=== PATIENT | male | born 1970 ===

== ENCOUNTER 2017-09-25 08:10 | Day surgery (SDC) | payer MEDICARE, OTHER ==
[~2017-09-25] VITALS: Ht 190.5 cm; Wt 132.4 kg
[~2017-09-25 08:10] MED LIST: ACYC400 PO; ALBU90OI; ALBU90OI6 INH; ALBU90OI61 INH; ALLO300; ARIP15 PO; ASPI325; ASPI325 PO; AZIT250 PO; CARI350 PO; COMBIVENT RESPIM4 GM; COMBIVENT RESPIM4 GM INH; CRUTCH3 XX; Carisoprodol350 MG PO; DICL25ER PO; ETOD200 PO; Emla Cream30 GM; FLONASE ALLERG9.9 ML; GUAI600T33 PO; HYDACE5 PO; HYDCHL25 PO; IBUP600 PO; INSLI100I SC; INSR10I SC; INSULANI; INSULANPEN; INSULANPEN SC; LAMO50 PO; LISI5 PO; LITH300C PO; LOSARTAN 100MG PO; LOVAZA; METF500; METF500 PO; METF500C PO; METO50ER PO; MORP60ER; NAPR500; NAPR500 PO; NIAC500ER; Novolog100 UNIT/2 SS; OLME20; OLME20 PO; OXYACE5T PO; OXYACE7.5T PO; Omeprazole20 M1 PO; PENVK500 PO; PRED20 PO; Percocet 5-3251 EACH PO; Prednisone20 MG PO; RANI150 PO; SILD50TA PO; SOMA; SOMA350 MG; SOMA350 MG PO; TAMS.4ER PO; TOPI50 PO; TRAM50 PO; VARE1 PO; Valium5 MG PO; Viagra100 MG PO; ZOSTAVAX V19400 UNIT; [UNRECOGNIZED DRUG - OTHER]; [UNRECOGNIZED DRUG - OTHER]; [UNRECOGNIZED DRUG - REMARK]; [UNRECOGNIZED DRUG - REMARK]
[2018-08-05] MEDS ORDERED: Humalog100 UNIT/1 (15:19)
[2018-08-05] MEDS ORDERED: ALBU3IS INH (15:23)
[2018-08-05] MEDS ORDERED: CARV6.25 PO (15:23)
[2018-08-05] MEDS ORDERED: Mobic15 MG PO (15:24)
[2018-08-05] MEDS ORDERED: BUDE6HFA INH (15:24)
[2018-08-05] MEDS ORDERED: ATOR80 PO (15:24)
[2018-08-05] MEDS ORDERED: LIRA0.6P SC (15:25)
[2018-08-05] MEDS ORDERED: OMEPRAZOLE20 MG PO (15:26)
[2018-08-05] MEDS ORDERED: SITA100T2 PO (15:26)
[2018-08-07] MEDS ORDERED: Aspir 8181 MG PO (12:16)
[2018-08-07] MEDS ORDERED: CLOP75 PO (12:17)
[2018-08-07] MEDS ORDERED: Nitroglycerin0.4 MG SL (12:18)
== END 2017-09-25 14:58 | disposition home or self-care (01) ==
LOC: ORSCSDS 08:10
PROVIDERS: Orthopaedic Surgery
PROC: 0RNJ4ZZ Release Right Shoulder Joint, Percutaneous Endoscopic Approach (ICD-10-PCS; principal; 2017-09-25 08:45)
PROC: 0PB94ZZ Excision of Right Clavicle, Percutaneous Endoscopic Approach (ICD-10-PCS; principal; 2017-09-25 08:45)
PROC: 0LQ14ZZ Repair Right Shoulder Tendon, Percutaneous Endoscopic Approach (ICD-10-PCS; principal; 2017-09-25 08:45)
DX: M75.111 Incomplete rotator cuff tear or rupture of right shoulder, not specified as traumatic (principal); M75.41 Impingement syndrome of right shoulder; M75.51 Bursitis of right shoulder; M19.011 Primary osteoarthritis, right shoulder; I10 Essential (primary) hypertension; I25.10 Atherosclerotic heart disease of native coronary artery without angina pectoris; G47.33 Obstructive sleep apnea (adult) (pediatric); F17.210 Nicotine dependence, cigarettes, uncomplicated; E11.9 Type 2 diabetes mellitus without complications; E66.01 Morbid (severe) obesity due to excess calories; Z68.36 Body mass index [BMI] 36.0-36.9, adult; Z79.82 Long term (current) use of aspirin; Z79.4 Long term (current) use of insulin; Z79.899 Other long term (current) drug therapy
CPT/HCPCS: 82947; C1713; J0171; J0690; J1100; J1885; J2250; J2405; J2710; J3010; J7120

== ENCOUNTER 2017-09-25 17:53 | Emergency (ER) | payer MEDICARE, OTHER ==
[~2017-09-25] VITALS: Ht 188 cm; Wt 113.4 kg
[2018-08-05] MEDS ORDERED: Humalog100 UNIT/1 (15:19)
[2018-08-05] MEDS ORDERED: CARV6.25 PO (15:23)
[2018-08-05] MEDS ORDERED: ALBU3IS INH (15:23)
[2018-08-05] MEDS ORDERED: Mobic15 MG PO (15:24)
[2018-08-05] MEDS ORDERED: BUDE6HFA INH (15:24)
[2018-08-05] MEDS ORDERED: ATOR80 PO (15:24)
[2018-08-05] MEDS ORDERED: LIRA0.6P SC (15:25)
[2018-08-05] MEDS ORDERED: SITA100T2 PO (15:26)
[2018-08-05] MEDS ORDERED: OMEPRAZOLE20 MG PO (15:26)
[2018-08-07] MEDS ORDERED: Aspir 8181 MG PO (12:16)
[2018-08-07] MEDS ORDERED: CLOP75 PO (12:17)
[2018-08-07] MEDS ORDERED: Nitroglycerin0.4 MG SL (12:18)
== END 2017-09-25 19:51 | disposition home or self-care (01) ==
LOC: ER 17:53
DX: H57.12 Ocular pain, left eye (principal); E11.9 Type 2 diabetes mellitus without complications; I10 Essential (primary) hypertension; F31.9 Bipolar disorder, unspecified; F17.200 Nicotine dependence, unspecified, uncomplicated; Z88.8 Allergy status to other drugs, medicaments and biological substances; Z79.899 Other long term (current) drug therapy; Z79.4 Long term (current) use of insulin; Z90.49 Acquired absence of other specified parts of digestive tract
CPT/HCPCS: 99284; J7030

== ENCOUNTER → 2018-12-24 | Outpatient (CLI) | payer MEDICARE, OTHER ==
[~2018-12-24] MED LIST changes: +ALBU3IS INH; +ATOR80 PO; +Aspir 8181 MG PO; +BUDE6HFA INH; +CARV6.25 PO; +CLOP75 PO; +Humalog100 UNIT/1; +LIRA0.6P SC; +Mobic15 MG PO; +Nitroglycerin0.4 MG SL; +OMEPRAZOLE20 MG PO; +SITA100T2 PO
[2018-12-24 13:10] LABS: BASOPHILS ABSOLUTE AUTO 0.03 K/mm3 (0.00-0.23); BASOPHILS PERCENT AUTO 1 % (0-2); EOSINOPHILS ABSOLUTE AUTO 0.14 K/mm3 (0.00-0.68); EOSINOPHILS PERCENT AUTO 3 % (0-6); Hematocrit 38.1 % (37.0-53.0); Hemoglobin 12.6 g/dL (13.5-17.5); IMMATURE GRAN ABSOLUTE AUTO 0.02 K/mm3 (0.00-0.10); IMMATURE GRAN PERCENT AUTO 1 % (0-1); LYMPHOCYTES ABSOLUTE AUTO 0.38 K/mm3 (0.84-5.20); LYMPHOCYTES PERCENT AUTO 9 % (21-46); MONOCYTES ABSOLUTE AUTO 0.29 K/mm3 (0.16-1.47); MONOCYTES PERCENT AUTO 7 % (4-13); Mean Corpuscular HGB 29.6 pg (26.0-34.0); Mean Corpuscular HGB Conc 33.1 g/dL (31.5-36.5); Mean Corpuscular Volume 90 fL (80-100); Mean Platelet Volume 10.7 fL (9.1-12.4); NEUTROPHILS ABSOLUTE AUTO 3.51 K/mm3 (1.96-9.15); NEUTROPHILS PERCENT AUTO 80 % (41-73); Platelet Count 109 K/mm3 (150-400); RDW Coefficient Variation 13.9 % (11.7-14.2); RDW Standard Deviation 45.1 fL (35.1-46.3); Red Blood Cell Count 4.25 M/mm3 (4.30-5.90); White Blood Cell Count 4.37 K/mm3 (4.00-11.30)
[2018-12-24 13:30] LABS: Alanine Aminotransfer (ALT/SGP 56 U/L (12-78); Albumin, Blood 3.2 g/dL (3.4-5.0); Albumin/Globulin Ratio 1.2 (0.8-1.8); Alk Phos 75 U/L (50-136); Amylase, Blood 31 U/L (25-115); Anion Gap 5 mmol/L (6-16); Aspartate Aminotrans (AST/SGOT 57 U/L (12-37); Bilirubin, Direct 0.2 mg/dL (0.0-0.3); Bilirubin, Indirect 0.5 mg/dL (0.1-0.7); Bilirubin, Total 0.7 mg/dL (0.1-1.0); Blood Urea Nitrogen 15 mg/dL (8-24); CO2, Blood 27 mmol/L (21-32); Calcium, Blood 8.4 mg/dL (8.5-10.1); Chloride, Blood 102 mmol/L (98-108); Globulin, Blood 2.6 g/dL (2.2-4.0); Glucose, Blood 175 mg/dL (70-99); Potassium, Blood 4.3 mmol/L (3.5-5.5); Sodium, Blood 134 mmol/L (136-145); Total Protein, Blood 5.8 g/dL (6.4-8.2); Uric Acid, Blood 5.2 mg/dL (3.5-7.2)
[2018-12-24 13:37] LABS: Bun/Creatinine Ratio 20.6 (12.0-20.0); Creatinine, Blood 0.73 mg/dL (0.60-1.20); Glomerular Filtration Rate >60 (60-)
== END | disposition home or self-care (01) ==
LOC: LAB SHORT 12:52 → LAB 12:52
PROVIDERS: Internal Medicine Nephrology
DX: N18.2 Chronic kidney disease, stage 2 (mild) (principal); D63.1 Anemia in chronic kidney disease; N25.81 Secondary hyperparathyroidism of renal origin; E55.9 Vitamin D deficiency, unspecified; E78.00 Pure hypercholesterolemia, unspecified; N20.0 Calculus of kidney; R10.9 Unspecified abdominal pain; R76.9 Abnormal immunological finding in serum, unspecified; R94.5 Abnormal results of liver function studies; R94.6 Abnormal results of thyroid function studies
CPT/HCPCS: 80053; 82150; 82248; 82306; 83690; 83970; 84100; 84550; 85025; 87086

== ENCOUNTER → 2019-02-05 | Outpatient (CLI) | payer MEDICARE, OTHER | END | disposition home or self-care (01) | LOC: LAB 16:48 → LAB SHORT 16:48 → LAB FUT 07-02 10:05 → EDSTATUS 02-04 10:05 | DX: H20.9 Unspecified iridocyclitis (principal) | CPT/HCPCS: 85651; 86140 ==

== ENCOUNTER 2019-02-23 09:42 | Day surgery (SDC) | payer MEDICARE, OTHER ==
[~2019-02-23] VITALS: Ht 190.5 cm; Wt 138.5 kg
[2019-02-23] MEDS ORDERED: ASPI325 (10:12)
== END 2019-02-23 12:30 | disposition home or self-care (01) ==
LOC: ORSCSDS 09:42
PROVIDERS: Otolaryngology
PROC: 03BS0ZX Excision of Right Temporal Artery, Open Approach, Diagnostic (ICD-10-PCS; principal; 2019-02-23 11:15)
DX: M31.6 Other giant cell arteritis (principal); Z87.891 Personal history of nicotine dependence; E11.9 Type 2 diabetes mellitus without complications; I10 Essential (primary) hypertension; J43.9 Emphysema, unspecified; I25.2 Old myocardial infarction; G47.33 Obstructive sleep apnea (adult) (pediatric); E78.5 Hyperlipidemia, unspecified; F31.9 Bipolar disorder, unspecified; Z79.4 Long term (current) use of insulin; Z79.899 Other long term (current) drug therapy
CPT/HCPCS: 82947; 88305; 88313; J2250; J3010; J7120

== ENCOUNTER → 2019-05-11 | Outpatient (CLI) | payer MEDICARE, OTHER ==
[2019-05-11 19:11] LABS: Bilirubin, Urine Neg (Neg); Blood, Urine 1+ (Neg); Glucose Qualitative, Urine Neg (Neg); Ketones, Urine Neg (Neg); Leukocyte Esterase, Urine Neg (Neg); Nitrite, Urine Neg (Neg); Protein, Urine 2+ (Neg); Specific Gravity, Urine 1.015 (1.003-1.022); Urobilinogen, Urine NORM (Normal)
[2019-05-11 19:13] LABS: BASOPHILS ABSOLUTE AUTO 0.04 K/mm3 (0.00-0.23); BASOPHILS PERCENT AUTO 1 % (0-2); EOSINOPHILS ABSOLUTE AUTO 0.28 K/mm3 (0.00-0.68); EOSINOPHILS PERCENT AUTO 4 % (0-6); Hematocrit 44.9 % (37.0-53.0); Hemoglobin 14.7 g/dL (13.5-17.5); IMMATURE GRAN ABSOLUTE AUTO 0.02 K/mm3 (0.00-0.10); IMMATURE GRAN PERCENT AUTO 0 % (0-1); LYMPHOCYTES ABSOLUTE AUTO 1.82 K/mm3 (0.84-5.20); LYMPHOCYTES PERCENT AUTO 26 % (21-46); MONOCYTES ABSOLUTE AUTO 0.44 K/mm3 (0.16-1.47); MONOCYTES PERCENT AUTO 6 % (4-13); Mean Corpuscular HGB 29.8 pg (26.0-34.0); Mean Corpuscular HGB Conc 32.7 g/dL (31.5-36.5); Mean Corpuscular Volume 91 fL (80-100); NEUTROPHILS ABSOLUTE AUTO 4.51 K/mm3 (1.96-9.15); NEUTROPHILS PERCENT AUTO 63 % (41-73); Platelet Count 146 K/mm3 (150-400); RDW Coefficient Variation 13.2 % (11.7-14.2); RDW Standard Deviation 44.1 fL (35.1-46.3); Red Blood Cell Count 4.94 M/mm3 (4.30-5.90); White Blood Cell Count 7.11 K/mm3 (4.00-11.30)
[2019-05-11 19:20] LABS: Appearance, Urine Clear (Clear); Color, Urine Yellow (P-Yellow)
[2019-05-11 19:21] LABS: Bacteria Rare /hpf; Red Blood Cells, Urine 0-2 /hpf (0-2); Squamous Epithelial Cells Not Seen /hpf (Few); White Blood Cells, Urine 0-2 /hpf (0-5)
[2019-05-11 20:06] LABS: Alanine Aminotransfer (ALT/SGP 33 U/L (12-78); Albumin, Blood 3.5 g/dL (3.4-5.0); Albumin/Globulin Ratio 1.1 (0.8-1.8); Alk Phos 99 U/L (50-136); Anion Gap 5 mmol/L (6-16); Aspartate Aminotrans (AST/SGOT 25 U/L (12-37); Bilirubin, Total 0.2 mg/dL (0.1-1.0); Blood Urea Nitrogen 9 mg/dL (8-24); Bun/Creatinine Ratio 14.8 (12.0-20.0); CHOL/HDL RATIO 5.9; CO2, Blood 24 mmol/L (21-32); Calcium, Blood 8.6 mg/dL (8.5-10.1); Chloride, Blood 108 mmol/L (98-108); Cholesterol 159 mg/dL (50-200); Creatinine, Blood 0.61 mg/dL (0.60-1.20); Globulin, Blood 3.3 g/dL (2.2-4.0); Glomerular Filtration Rate >60 (60-); Glucose, Blood 189 mg/dL (70-99); HDL Cholesterol 27 mg/dL (>39); LDL Direct Measurement 61 mg/dL (0-130); LDL/HDL RATIO Unable to Calculate; Low Density Lipoprotein Chol Unable to Calculate mg/dL (0-110); Potassium, Blood 4.3 mmol/L (3.5-5.5); Sodium, Blood 137 mmol/L (136-145); Total Protein, Blood 6.8 g/dL (6.4-8.2); Triglycerides 651 mg/dL (30-160); Very Low Density Lipoprot Chol Unable to Calculate mg/dL (6-32)
[2019-05-13 05:08] LABS: HBSAG SCREEN Negative (Negative); HEP A AB, IGM Negative (Negative); HEP B CORE AB, IGM Negative (Negative); HEP C VIRUS AB <0.1 (0.0-0.9)
== END | disposition home or self-care (01) ==
LOC: LAB SHORT 18:49 → LAB 18:49 → EDSTATUS 05-11 14:20 → LAB FUT 05-11 14:20
PROVIDERS: Nurse Practitioner Family
DX: E13.42 Other specified diabetes mellitus with diabetic polyneuropathy (principal); K74.60 Unspecified cirrhosis of liver
CPT/HCPCS: 80053; 80061; 80074; 81001; 82043; 83036; 83721; 85025; 87086

== ENCOUNTER 2019-09-23 09:52 | Day surgery (SDC) | payer OTHER ==
[~2019-09-23] VITALS: Ht 190.5 cm; Wt 138.8 kg
[~2019-09-23 09:52] MED LIST changes: +ACYC800 PO; +ALBU90OI INH; +ALLO300 PO; +BASAGLAR K100 UNIT/2 SC; +Duoneb 2.5-0.5 M3 ML INH; +Flonase 0.05% N16 GM; +Glucophage1000 MG PO; +Norco 5-325 Ta1 EACH PO; +Novolog100 UNIT/1; +OMEP20ER PO; +PROM25 PO
[2019-09-23] MEDS ORDERED: CARV6.25 PO (10:28)
--- NOTE | 2019-09-23 11:26 | NUR ---
09/23/19 1126 Lay Obregon 30 MLS OF EPI USED FOR NASAL PACKING.
--- NOTE | 2019-09-23 12:50 | NUR ---
09/23/19 1250 Radhika Aviles NASAL OOZING NOTED. 1 SPRAY AFRIN TO EACH NOSTRIL. 50 MCG IV FENTANYL GIVEN FOR 8/10 PAIN PER ANESTHESIA PACU ORDERS. PT C/O DIFFICULTY BREATHING IN. ENCOURAGED PT TO TAKE SLOW DEEP BREATHS. SATURATIONS 98% ON 10L FACE MASK OXYGEN. DR. QUINTERO NOTIFIED AND EVALUATED PT. WILL CONTINUE TO MONITOR.
== END 2019-09-23 13:45 | disposition home or self-care (01) ==
LOC: ORSCSDS 09:52
PROVIDERS: Otolaryngology
PROC: 09TL0ZZ Resection of Nasal Turbinate, Open Approach (ICD-10-PCS; principal; 2019-09-23 11:00)
PROC: 09BM0ZZ Excision of Nasal Septum, Open Approach (ICD-10-PCS; principal; 2019-09-23 11:00)
DX: J34.2 Deviated nasal septum (principal); J34.3 Hypertrophy of nasal turbinates; I10 Essential (primary) hypertension; I25.2 Old myocardial infarction; J44.9 Chronic obstructive pulmonary disease, unspecified; Z87.891 Personal history of nicotine dependence; E11.9 Type 2 diabetes mellitus without complications; E66.01 Morbid (severe) obesity due to excess calories; Z68.38 Body mass index [BMI] 38.0-38.9, adult; Z79.899 Other long term (current) drug therapy; Z79.4 Long term (current) use of insulin; Z79.84 Long term (current) use of oral hypoglycemic drugs
CPT/HCPCS: 82947; A9270-GY; J1100; J2250; J2405; J2704; J3010; J7120

== ENCOUNTER → 2019-10-05 | Outpatient (CLI) | payer OTHER ==
[2019-10-05 17:15] LABS: BASOPHILS ABSOLUTE AUTO 0.06 K/mm3 (0.00-0.23); BASOPHILS PERCENT AUTO 1 % (0-2); EOSINOPHILS ABSOLUTE AUTO 0.27 K/mm3 (0.00-0.68); EOSINOPHILS PERCENT AUTO 4 % (0-6); Hematocrit 45.6 % (37.0-53.0); Hemoglobin 15.5 g/dL (13.5-17.5); IMMATURE GRAN ABSOLUTE AUTO 0.02 K/mm3 (0.00-0.10); IMMATURE GRAN PERCENT AUTO 0 % (0-1); LYMPHOCYTES PERCENT AUTO 22 % (21-46); MONOCYTES PERCENT AUTO 5 % (4-13); Mean Corpuscular HGB 30.6 pg (26.0-34.0); Mean Corpuscular Volume 90 fL (80-100); Mean Platelet Volume 11.6 fL (9.1-12.4); NEUTROPHILS ABSOLUTE AUTO 4.36 K/mm3 (1.96-9.15); NEUTROPHILS PERCENT AUTO 68 % (41-73); Platelet Count 158 K/mm3 (150-400); RDW Coefficient Variation 13.2 % (11.7-14.2); Red Blood Cell Count 5.07 M/mm3 (4.30-5.90); White Blood Cell Count 6.41 K/mm3 (4.00-11.30)
[2019-10-05 17:18] LABS: Bilirubin, Urine Neg (Neg); Blood, Urine Neg (Neg); Glucose Qualitative, Urine 4+ (Neg); Ketones, Urine Neg (Neg); Leukocyte Esterase, Urine Neg (Neg); Nitrite, Urine Neg (Neg); Protein, Urine 2+ (Neg); Urobilinogen, Urine NORM (Normal)
[2019-10-05 17:28] LABS: Appearance, Urine Clear (Clear); Color, Urine Yellow (P-Yellow)
[2019-10-05 17:31] LABS: Bacteria Rare /hpf; Red Blood Cells, Urine Not Seen /hpf (0-2); Squamous Epithelial Cells Rare /hpf (Few)
[2019-10-05 17:32] LABS: White Blood Cells, Urine Rare /hpf (0-5)
[2019-10-05 17:49] LABS: Alanine Aminotransfer (ALT/SGP 74 U/L (12-78); Albumin, Blood 3.4 g/dL (3.4-5.0); Albumin/Globulin Ratio 0.9 (0.8-1.8); Alk Phos 94 U/L (50-136); Anion Gap 2 mmol/L (6-16); Aspartate Aminotrans (AST/SGOT 49 U/L (12-37); Bilirubin, Total 0.5 mg/dL (0.1-1.0); Blood Urea Nitrogen 11 mg/dL (8-24); Bun/Creatinine Ratio 15.4 (12.0-20.0); CO2, Blood 30 mmol/L (21-32); Calcium, Blood 8.1 mg/dL (8.5-10.1); Chloride, Blood 100 mmol/L (98-108); Creatinine, Blood 0.72 mg/dL (0.60-1.20); Globulin, Blood 3.6 g/dL (2.2-4.0); Glomerular Filtration Rate >60 (60-); Glucose, Blood 368 mg/dL (70-99); Potassium, Blood 4.2 mmol/L (3.5-5.5); Sodium, Blood 132 mmol/L (136-145)
== END | disposition home or self-care (01) ==
LOC: LAB SHORT 16:26 → LAB 16:26
PROVIDERS: Nurse Practitioner Family
DX: E13.42 Other specified diabetes mellitus with diabetic polyneuropathy (principal); K86.1 Other chronic pancreatitis
CPT/HCPCS: 80053; 81001; 82043; 83690; 85025

== ENCOUNTER 2019-10-20 09:35 | Day surgery (SDC) | payer OTHER ==
--- NOTE | 2019-10-20 10:29 | NUR ---
Ambulatory in Day Surgery History, Chart, Medications and Allergies reviewed before start of procedure.Lungs clear T/O to Auscultation.PT STATES THAT HE JUST USED HIS INHALER AT 1000.Patient states colon prep results clear. Patient confirms NPO status and agrees with scheduled surgery. Patient States Post-Procedure ride home has been arranged.
--- NOTE | 2019-10-20 10:39 | NUR ---
PT REPORTS 02/09 "MIGRAINE HEADACHE." BP 184/94.
--- NOTE | 2019-10-20 10:49 | NUR ---
CBG-[id number]. PT GIVEN HEAD PHONES AND REMOTE TO WATCH TV. PT DENIES FURTHER NEEDS AT THIS TIME. PT TO NOTIFY RN RADHAN.
--- NOTE | 2019-10-20 11:52 | NUR ---
10/20/19 1152 Tahira Toscano History, Chart, Medications and Allergies reviewed before start of procedure. PATIENT CONFIRMS NPO STATUS AND AGREES WITH SCHEDULED PROCEDURE. MONITOR INTACT WITH CONTINUOUS PULSE OXIMETRY AND INTERMITTENT BP. O2 VIA N/C INTACT THROUGHOUT SEDATION/PROCEDURE. 3-LEAD EKG REVIEWED WITH PHYSICIAN PRIOR TO START OF PROCEDURE. Bite Block Placed. HURRICAINE SPRAY TO OROPHARYX. PATIENT DETERMINED TO BE ASA APPROPRIATE FOR PROPOFOL SEDATION PRIOR TO START OF PROCEDURE BY DR. LAN. LUNG SOUNDS CLEAR.
--- NOTE | 2019-10-20 13:21 | NUR ---
Patient up to Ambulate independently. Gait steady. Discharge instructions reviewed with patient. Patient verbalizes understanding. Copy given to patient to take home. Patient States Post-Procedure ride home has been arranged. Discharged via wheelchair to private car for ride home. PATIENT REFUSED THE BREATHING TREATMENT THAT WAS ORDERED FOR HIM.
== END 2019-10-20 13:23 | disposition home or self-care (01) ==
LOC: ORSCMMR 09:35 → ORD 10:30 → ORSCMMR 13:23
PROVIDERS: Internal Medicine Gastroenterology
PROC: 0DB58ZX Excision of Esophagus, Via Natural or Artificial Opening Endoscopic, Diagnostic (ICD-10-PCS; principal; 2019-10-20 10:30)
PROC: 0DB48ZX Excision of Esophagogastric Junction, Via Natural or Artificial Opening Endoscopic, Diagnostic (ICD-10-PCS; principal; 2019-10-20 10:30)
PROC: 0DB68ZX Excision of Stomach, Via Natural or Artificial Opening Endoscopic, Diagnostic (ICD-10-PCS; principal; 2019-10-20 10:30)
PROC: 0DBH8ZX Excision of Cecum, Via Natural or Artificial Opening Endoscopic, Diagnostic (ICD-10-PCS; principal; 2019-10-20 10:30)
DX: K75.81 Nonalcoholic steatohepatitis (NASH) (principal); Z12.11 Encounter for screening for malignant neoplasm of colon; Z86.010 Personal history of colon polyps; D12.0 Benign neoplasm of cecum; E11.9 Type 2 diabetes mellitus without complications; E78.1 Pure hyperglyceridemia; K21.9 Gastro-esophageal reflux disease without esophagitis; E66.01 Morbid (severe) obesity due to excess calories; Z68.37 Body mass index [BMI] 37.0-37.9, adult; I10 Essential (primary) hypertension; Z79.84 Long term (current) use of oral hypoglycemic drugs; Z79.899 Other long term (current) drug therapy
CPT/HCPCS: 82947; 88305; 88342; J2250; J2704; J7120

== ENCOUNTER 2019-11-12 07:13 | Day surgery (SDC) | payer OTHER ==
[~2019-11-12] VITALS: Ht 190.5 cm; Wt 135.6 kg
[~2019-11-12 07:13] MED LIST changes: +Novolog100 UNIT/1 SC
--- NOTE | 2019-11-12 08:01 | NUR ---
11/12/19 0801 Mckenna Lopez PERIOP TEACHING DONE, DISCHARGE TEACHING GONE OVER, INCENTIVE SPIROMETRY TEACHIN AND RETURN DEMO DONE BY PT. SHOWED THE PATIENT HOW TO USE THE IMMOBILIZER SLING. CALL LIGHT IN REACH.
--- NOTE | 2019-11-12 09:05 | NUR ---
11/12/19 0905 Lay Obregon PREPPED ELBOW WITH DURAPREP. SHOULDER THEN PREPPED WITH ALCOHOL AND CHLORAHEXIDINE.
--- NOTE | 2019-11-12 11:51 | NUR ---
11/12/19 1151 SVEN LINDSAY PATIENT REQUIRING O2 TO KEEP O2 SATS GREATER THAN 92% IN PACU. DUO NEB ADMINISTERED WITH IMPROVEMENT IN LUNG SOUNDS/RESPIRATORY EFFORT. PATIENT C/O SEVERE PAIN, TREATED WITH IV FENTANYL PER MD ORDER. CMS INTACT IN RUE. PATIENT HAD BOWEL MOVEMENT IN RECOVERY. DENIES NAUSEA.
== END 2019-11-12 12:48 | disposition home or self-care (01) ==
LOC: ORSCSDS 07:13
PROVIDERS: Orthopaedic Surgery
PROC: 0RNJ4ZZ Release Right Shoulder Joint, Percutaneous Endoscopic Approach (ICD-10-PCS; principal; 2019-11-12 08:10)
PROC: 01S40ZZ Reposition Ulnar Nerve, Open Approach (ICD-10-PCS; principal; 2019-11-12 08:10)
PROC: 0LU14KZ Supplement Right Shoulder Tendon with Nonautologous Tissue Substitute, Percutaneous Endoscopic Approach (ICD-10-PCS; principal; 2019-11-12 08:10)
PROC: 0LQ14ZZ Repair Right Shoulder Tendon, Percutaneous Endoscopic Approach (ICD-10-PCS; principal; 2019-11-12 08:10)
DX: M75.111 Incomplete rotator cuff tear or rupture of right shoulder, not specified as traumatic (principal); M75.21 Bicipital tendinitis, right shoulder; M75.41 Impingement syndrome of right shoulder; G56.21 Lesion of ulnar nerve, right upper limb; I10 Essential (primary) hypertension; I25.2 Old myocardial infarction; I25.10 Atherosclerotic heart disease of native coronary artery without angina pectoris; J44.9 Chronic obstructive pulmonary disease, unspecified; G47.33 Obstructive sleep apnea (adult) (pediatric); Z87.891 Personal history of nicotine dependence; E11.40 Type 2 diabetes mellitus with diabetic neuropathy, unspecified; K76.0 Fatty (change of) liver, not elsewhere classified; E66.01 Morbid (severe) obesity due to excess calories; Z68.37 Body mass index [BMI] 37.0-37.9, adult; Z79.899 Other long term (current) drug therapy
CPT/HCPCS: 82947; A9270-GY; C1713; J0171; J0330; J0690; J1100; J2250; J2370; J2405; J2704; J2795; J3010; J7120

== ENCOUNTER 2020-02-03 08:11 | Day surgery (SDC) | payer OTHER ==
[~2020-02-03] VITALS: Ht 190.5 cm; Wt 140.1 kg
[2020-02-03] MEDS ORDERED: Chantix1 MG PO (09:13)
[2020-02-03] MEDS ORDERED: BUTALB-ACETAMI1 EAC2 PO (09:14)
[2020-02-03] MEDS ORDERED: ACYCLOVIR400 MG PO (09:15)
[2020-02-03] MEDS ORDERED: Phenergan25 M1 (09:16)
--- NOTE | 2020-02-03 09:56 | NUR ---
02/03/20 0956 Lay Obregon FROM 38-60.
== END 2020-02-03 10:30 | disposition home or self-care (01) ==
LOC: ORSCSDS 08:11
PROVIDERS: Otolaryngology
PROC: 0D757ZZ Dilation of Esophagus, Via Natural or Artificial Opening (ICD-10-PCS; principal; 2020-02-03 09:30)
DX: R13.14 Dysphagia, pharyngoesophageal phase (principal); J44.9 Chronic obstructive pulmonary disease, unspecified; I25.2 Old myocardial infarction; I10 Essential (primary) hypertension; I25.10 Atherosclerotic heart disease of native coronary artery without angina pectoris; K21.9 Gastro-esophageal reflux disease without esophagitis; E11.9 Type 2 diabetes mellitus without complications; Z87.891 Personal history of nicotine dependence; Z68.38 Body mass index [BMI] 38.0-38.9, adult; E66.01 Morbid (severe) obesity due to excess calories; Z79.4 Long term (current) use of insulin; Z79.899 Other long term (current) drug therapy
CPT/HCPCS: 82947; J0330; J1100; J2250; J2704; J3010; J7120

== ENCOUNTER → 2020-02-11 | Outpatient (CLI) | payer OTHER ==
[~2020-02-11] MED LIST changes: +ACYCLOVIR400 MG PO; +BUTALB-ACETAMI1 EAC2 PO; +Chantix1 MG PO; +Phenergan25 M1
[2020-02-11 16:51] LABS: BASOPHILS ABSOLUTE AUTO 0.04 K/mm3 (0.00-0.23); BASOPHILS PERCENT AUTO 1 % (0-2); EOSINOPHILS ABSOLUTE AUTO 0.28 K/mm3 (0.00-0.68); EOSINOPHILS PERCENT AUTO 5 % (0-6); Hemoglobin 14.8 g/dL (13.5-17.5); IMMATURE GRAN ABSOLUTE AUTO 0.02 K/mm3 (0.00-0.10); IMMATURE GRAN PERCENT AUTO 0 % (0-1); LYMPHOCYTES ABSOLUTE AUTO 1.75 K/mm3 (0.84-5.20); LYMPHOCYTES PERCENT AUTO 29 % (21-46); MONOCYTES ABSOLUTE AUTO 0.36 K/mm3 (0.16-1.47); MONOCYTES PERCENT AUTO 6 % (4-13); Mean Corpuscular HGB 28.4 pg (26.0-34.0); Mean Corpuscular HGB Conc 32.2 g/dL (31.5-36.5); Mean Corpuscular Volume 88 fL (80-100); Mean Platelet Volume 11.8 fL (9.1-12.4); NEUTROPHILS ABSOLUTE AUTO 3.63 K/mm3 (1.96-9.15); NEUTROPHILS PERCENT AUTO 60 % (41-73); Platelet Count 119 K/mm3 (150-400); RDW Coefficient Variation 14.2 % (11.7-14.2); RDW Standard Deviation 45.6 fL (35.1-46.3); Red Blood Cell Count 5.22 M/mm3 (4.30-5.90); White Blood Cell Count 6.08 K/mm3 (4.00-11.30)
[2020-02-11 17:32] LABS: Alanine Aminotransfer (ALT/SGP 55 U/L (12-78); Albumin, Blood 3.3 g/dL (3.4-5.0); Albumin/Globulin Ratio 0.9 (0.8-1.8); Alk Phos 80 U/L (50-136); Anion Gap 6 mmol/L (6-16); Aspartate Aminotrans (AST/SGOT 44 U/L (12-37); Bilirubin, Total 0.3 mg/dL (0.1-1.0); Blood Urea Nitrogen 8 mg/dL (8-24); CHOL/HDL RATIO 7.1; CO2, Blood 27 mmol/L (21-32); Calcium, Blood 8.9 mg/dL (8.5-10.1); Chloride, Blood 105 mmol/L (98-108); Cholesterol 220 mg/dL (50-200); Globulin, Blood 3.7 g/dL (2.2-4.0); Glucose, Blood 160 mg/dL (70-99); HDL Cholesterol 31 mg/dL (>39); LDL/HDL RATIO Unable to Calculate; Low Density Lipoprotein Chol Unable to Calculate mg/dL (0-110); Potassium, Blood 4.5 mmol/L (3.5-5.5); Sodium, Blood 138 mmol/L (136-145); Triglycerides 415 mg/dL (30-160); Very Low Density Lipoprot Chol Unable to Calculate mg/dL (6-32)
[2020-02-11 17:35] LABS: Bun/Creatinine Ratio 11.1 (12.0-20.0); Creatinine, Blood 0.72 mg/dL (0.60-1.20); Glomerular Filtration Rate >60 (60-)
[2020-02-15 20:31] LABS: LDL Direct Measurement 114 mg/dL (0-130)
== END | disposition home or self-care (01) ==
LOC: LAB 10:56 → LAB SHORT 10:56
PROVIDERS: Nurse Practitioner Family
DX: E13.42 Other specified diabetes mellitus with diabetic polyneuropathy (principal); E78.2 Mixed hyperlipidemia
CPT/HCPCS: 80053; 80061; 83721; 85025

== ENCOUNTER → 2020-08-31 | Outpatient (CLI) | payer OTHER ==
[2020-08-31 17:39] LABS: BASOPHILS ABSOLUTE AUTO 0.04 K/mm3 (0.00-0.23); BASOPHILS PERCENT AUTO 0 % (0-2); EOSINOPHILS ABSOLUTE AUTO 0.33 K/mm3 (0.00-0.68); EOSINOPHILS PERCENT AUTO 3 % (0-6); Hematocrit 48.6 % (37.0-53.0); Hemoglobin 15.3 g/dL (13.5-17.5); IMMATURE GRAN ABSOLUTE AUTO 0.04 K/mm3 (0.00-0.10); IMMATURE GRAN PERCENT AUTO 0 % (0-1); LYMPHOCYTES ABSOLUTE AUTO 2.21 K/mm3 (0.84-5.20); LYMPHOCYTES PERCENT AUTO 23 % (21-46); MONOCYTES ABSOLUTE AUTO 0.48 K/mm3 (0.16-1.47); MONOCYTES PERCENT AUTO 5 % (4-13); Mean Corpuscular HGB 27.8 pg (26.0-34.0); Mean Corpuscular HGB Conc 31.5 g/dL (31.5-36.5); Mean Corpuscular Volume 88 fL (80-100); Mean Platelet Volume 11.6 fL (9.1-12.4); NEUTROPHILS ABSOLUTE AUTO 6.69 K/mm3 (1.96-9.15); NEUTROPHILS PERCENT AUTO 68 % (41-73); Platelet Count 165 K/mm3 (150-400); RDW Standard Deviation 44.9 fL (35.1-46.3); White Blood Cell Count 9.79 K/mm3 (4.00-11.30)
[2020-08-31 17:57] LABS: Alanine Aminotransfer (ALT/SGP 49 U/L (12-78); Albumin, Blood 3.5 g/dL (3.4-5.0); Albumin/Globulin Ratio 0.9 (0.8-1.8); Alk Phos 85 U/L (50-136); Anion Gap 7 mmol/L (6-16); Aspartate Aminotrans (AST/SGOT 35 U/L (12-37); Bilirubin, Total 0.3 mg/dL (0.1-1.0); Blood Urea Nitrogen 11 mg/dL (8-24); Bun/Creatinine Ratio 15.4 (12.0-20.0); CHOL/HDL RATIO 4.8; CO2, Blood 27 mmol/L (21-32); Chloride, Blood 103 mmol/L (98-108); Cholesterol 153 mg/dL (50-200); Creatinine, Blood 0.72 mg/dL (0.60-1.20); Globulin, Blood 3.8 g/dL (2.2-4.0); Glomerular Filtration Rate >60 (60-); Glucose, Blood 116 mg/dL (70-99); HDL Cholesterol 32 mg/dL (>39); LDL/HDL RATIO 1.7; Low Density Lipoprotein Chol 54 mg/dL (0-110); Potassium, Blood 4.2 mmol/L (3.5-5.5); Sodium, Blood 137 mmol/L (136-145); Total Protein, Blood 7.3 g/dL (6.4-8.2); Triglycerides 336 mg/dL (30-160); Very Low Density Lipoprot Chol 67 mg/dL (6-32)
== END ==
LOC: LAB SHORT 16:24
PROVIDERS: Nurse Practitioner Family
DX: E13.42 Other specified diabetes mellitus with diabetic polyneuropathy (principal)
CPT/HCPCS: 80053; 80061; 83036; 85025

== ENCOUNTER → 2020-09-06 | Outpatient (CLI) | payer OTHER ==
[2020-09-06 16:17] LABS: Source, Urine Clean Catch
[2020-09-06 17:43] LABS: Appearance, Urine Clear (Clear); Bilirubin, Urine Neg (Neg); Blood, Urine Neg (Neg); Color, Urine Yellow (P-Yellow); Glucose Qualitative, Urine Neg (Neg); Ketones, Urine Neg (Neg); Leukocyte Esterase, Urine 1+ (Neg); Nitrite, Urine Neg (Neg); Protein, Urine 2+ (Neg); Urobilinogen, Urine NORM (Normal); pH, Urine 6.5 (5.0-8.0)
[2020-09-06 18:08] LABS: Bacteria Not Seen /hpf; Red Blood Cells, Urine 0-2 /hpf (0-2); Squamous Epithelial Cells Rare /hpf (Few)
== END ==
LOC: LAB SHORT 16:11
PROVIDERS: Nurse Practitioner Family
DX: E13.42 Other specified diabetes mellitus with diabetic polyneuropathy (principal)
CPT/HCPCS: 81001; 82043; 87086

== ENCOUNTER → 2020-09-27 | Outpatient (CLI) | payer OTHER | END | disposition home or self-care (01) | LOC: LAB 14:30 → LAB SHORT 14:30 | DX: R41.3 Other amnesia (principal) | CPT/HCPCS: 86592 ==

== ENCOUNTER → 2020-12-06 | Outpatient (CLI) | payer OTHER | LOC: LAB SHORT 07:35 | DX: D49.0 Neoplasm of unspecified behavior of digestive system (principal); Z88.8 Allergy status to other drugs, medicaments and biological substances | CPT/HCPCS: 88305 ==

== ENCOUNTER → 2021-01-05 | Outpatient (CLI) | payer OTHER ==
[2021-01-06 20:10] LABS: FREE TESTOSTERONE(DIRECT) 5.1 pg/mL (7.2-24.0); TESTOSTERONE, SERUM 381 ng/dL (264-916)
== END | disposition home or self-care (01) ==
LOC: PLD 16:37 → LAB SHORT 16:37
PROVIDERS: Nurse Practitioner Family
DX: R68.82 Decreased libido (principal)
CPT/HCPCS: 84402; 84403

== ENCOUNTER → 2021-01-26 | Outpatient (CLI) | payer OTHER ==
[2021-01-26 18:59] LABS: Anion Gap 5 mmol/L (6-16); Blood Urea Nitrogen 15 mg/dL (8-24); Bun/Creatinine Ratio 19.6 (12.0-20.0); CO2, Blood 29 mmol/L (21-32); Calcium, Blood 9.6 mg/dL (8.5-10.1); Chloride, Blood 104 mmol/L (98-108); Creatinine, Blood 0.77 mg/dL (0.60-1.20); Glomerular Filtration Rate >60 (60-); Glucose, Blood 124 mg/dL (70-99); Potassium, Blood 4.2 mmol/L (3.5-5.5); Sodium, Blood 138 mmol/L (136-145)
== END | disposition home or self-care (01) ==
LOC: LAB SHORT 17:16 → LAB 17:16
PROVIDERS: Nurse Practitioner Family
DX: Z01.812 Encounter for preprocedural laboratory examination (principal); J34.89 Other specified disorders of nose and nasal sinuses; I10 Essential (primary) hypertension
CPT/HCPCS: 80048

== ENCOUNTER 2021-02-01 06:17 | Day surgery (SDC) | payer OTHER ==
[~2021-02-01] VITALS: Ht 188 cm; Wt 139.7 kg
--- NOTE | 2021-02-01 08:20 | NUR ---
02/01/21 0820 Lay Obregon TEGADERM OVER EYES, PLACED BY DR. TOVAR. PREPPED OVER TEGADERM. EPI 30 MG USED TO SOAK PLEDGETS FOR PACKING.
== END 2021-02-01 12:22 | disposition home or self-care (01) ==
LOC: ORSCSDS 06:17
PROVIDERS: Otolaryngology
PROC: 0HB3XZZ Excision of Left Ear Skin, External Approach (ICD-10-PCS; principal; 2021-02-01 07:30)
PROC: 09QM0ZZ Repair Nasal Septum, Open Approach (ICD-10-PCS; principal; 2021-02-01 07:30)
DX: J34.89 Other specified disorders of nose and nasal sinuses (principal); E11.9 Type 2 diabetes mellitus without complications; I10 Essential (primary) hypertension; F31.9 Bipolar disorder, unspecified; J44.9 Chronic obstructive pulmonary disease, unspecified; Z79.82 Long term (current) use of aspirin; Z79.4 Long term (current) use of insulin; Z79.899 Other long term (current) drug therapy; F17.210 Nicotine dependence, cigarettes, uncomplicated
CPT/HCPCS: 82947; A9270; C9046; J0171; J0690; J1100; J2370; J2405; J2550; J2704; J3010; J7120

== ENCOUNTER → 2021-03-13 | Outpatient (CLI) | payer OTHER ==
[2021-03-13 18:52] LABS: Cholesterol 134 mg/dL (50-200); HDL Cholesterol 27 mg/dL (>39); LDL/HDL RATIO 2.4; Low Density Lipoprotein Chol 65 mg/dL (0-110); Triglycerides 212 mg/dL (30-160); Very Low Density Lipoprot Chol 42 mg/dL (6-32)
== END | disposition home or self-care (01) ==
LOC: LAB 16:16 → LAB SHORT 16:16
PROVIDERS: Nurse Practitioner Family
DX: Z12.5 Encounter for screening for malignant neoplasm of prostate (principal); E11.9 Type 2 diabetes mellitus without complications; E78.5 Hyperlipidemia, unspecified; R79.89 Other specified abnormal findings of blood chemistry
CPT/HCPCS: 80061; 83036; 84403; 84443; G0103

== ENCOUNTER → 2021-04-18 | Outpatient (CLI) | payer OTHER ==
[2021-04-19 18:06] LABS: ANA DIRECT Negative (Negative); ANTI-DNA (DS) AB QN <1 IU/mL (0-9); RNP ANTIBODIES <0.2 AI (0.0-0.9); SJOGREN'S ANTI-SS-A <0.2 AI (0.0-0.9); SJOGREN'S ANTI-SS-B <0.2 AI (0.0-0.9); SMITH ANTIBODIES <0.2 AI (0.0-0.9)
== END | disposition home or self-care (01) ==
LOC: LAB SHORT 16:56 → LAB 16:56
PROVIDERS: Nurse Practitioner Family
DX: M54.9 Dorsalgia, unspecified (principal); G89.29 Other chronic pain
CPT/HCPCS: 85651; 86225; 86235; 86430

== ENCOUNTER → 2021-06-16 | Outpatient (CLI) | payer OTHER | END | disposition home or self-care (01) | LOC: LAB SHORT 18:05 | DX: N53.12 Painful ejaculation (principal) | CPT/HCPCS: 87086 ==

== ENCOUNTER 2021-11-21 07:46 | Day surgery (SDC) | payer OTHER ==
[~2021-11-21] VITALS: Ht 190.5 cm; Wt 131.3 kg
[2021-11-21] MEDS ORDERED: ASPI325 PO (08:02)
--- NOTE | 2021-11-21 08:09 | NUR ---
11/21/21 0809 ASHLY LAZARO TETRACAINE DROP INSTILLED AT 0803 PELDGETT INSERTED AT 0806
== END 2021-11-21 10:32 | disposition home or self-care (01) ==
LOC: ORSCSDS 07:46
PROVIDERS: Counselor Professional
PROC: 08RK3JZ Replacement of Left Lens with Synthetic Substitute, Percutaneous Approach (ICD-10-PCS; principal; 2021-11-21 09:00)
DX: H25.12 Age-related nuclear cataract, left eye (principal); I10 Essential (primary) hypertension; J44.9 Chronic obstructive pulmonary disease, unspecified; J45.909 Unspecified asthma, uncomplicated; G47.33 Obstructive sleep apnea (adult) (pediatric); K21.9 Gastro-esophageal reflux disease without esophagitis; E66.9 Obesity, unspecified; Z68.36 Body mass index [BMI] 36.0-36.9, adult; F17.210 Nicotine dependence, cigarettes, uncomplicated; Z79.4 Long term (current) use of insulin; Z79.899 Other long term (current) drug therapy
CPT/HCPCS: 82947; J2001; J2250; J2704; J3010; J7040; V2632

== ENCOUNTER → 2022-03-15 | Outpatient (CLI) | payer OTHER ==
[2022-03-15 17:35] LABS: BASOPHILS ABSOLUTE AUTO 0.05 K/mm3 (0.00-0.23); BASOPHILS PERCENT AUTO 1 % (0-2); EOSINOPHILS ABSOLUTE AUTO 0.31 K/mm3 (0.00-0.68); EOSINOPHILS PERCENT AUTO 4 % (0-6); Hemoglobin 16.8 g/dL (13.5-17.5); IMMATURE GRAN ABSOLUTE AUTO 0.02 K/mm3 (0.00-0.10); IMMATURE GRAN PERCENT AUTO 0 % (0-1); LYMPHOCYTES ABSOLUTE AUTO 1.94 K/mm3 (0.84-5.20); LYMPHOCYTES PERCENT AUTO 22 % (21-46); MONOCYTES ABSOLUTE AUTO 0.45 K/mm3 (0.16-1.47); MONOCYTES PERCENT AUTO 5 % (4-13); Mean Corpuscular HGB Conc 31.7 g/dL (31.5-36.5); Mean Corpuscular Volume 85 fL (80-100); Mean Platelet Volume 11.6 fL (9.1-12.4); NEUTROPHILS ABSOLUTE AUTO 5.91 K/mm3 (1.96-9.15); NEUTROPHILS PERCENT AUTO 68 % (41-73); Platelet Count 187 K/mm3 (150-400); RDW Coefficient Variation 14.2 % (11.7-14.2); RDW Standard Deviation 43.6 fL (35.1-46.3); Red Blood Cell Count 6.23 M/mm3 (4.30-5.90); White Blood Cell Count 8.68 K/mm3 (4.00-11.30)
[2022-03-15 18:49] LABS: Alanine Aminotransfer (ALT/SGP 51 U/L (12-78); Albumin, Blood 3.6 g/dL (3.4-5.0); Albumin/Globulin Ratio 0.9 (0.8-1.8); Alk Phos 97 U/L (50-136); Anion Gap 7 mmol/L (6-16); Aspartate Aminotrans (AST/SGOT 38 U/L (12-37); Bilirubin, Total 0.7 mg/dL (0.1-1.0); Blood Urea Nitrogen 14 mg/dL (8-24); Bun/Creatinine Ratio 19.2 (12.0-20.0); CHOL/HDL RATIO 2.9; CO2, Blood 23 mmol/L (21-32); Calcium, Blood 9.4 mg/dL (8.5-10.1); Chloride, Blood 107 mmol/L (98-108); Cholesterol 125 mg/dL (50-200); Creatinine, Blood 0.73 mg/dL (0.60-1.20); Globulin, Blood 3.8 g/dL (2.2-4.0); Glomerular Filtration Rate 109 (60-); Glucose, Blood 143 mg/dL (70-99); HDL Cholesterol 43 mg/dL (>39); Low Density Lipoprotein Chol 42 mg/dL (0-110); Potassium, Blood 4.3 mmol/L (3.5-5.5); Sodium, Blood 137 mmol/L (136-145); Thyroid Stimulating Hormone 0.948 uIU/mL (0.360-4.800); Total Protein, Blood 7.4 g/dL (6.4-8.2); Triglycerides 199 mg/dL (30-160); Very Low Density Lipoprot Chol 39 mg/dL (6-32)
[2022-03-16 21:06] LABS: FREE TESTOSTERONE(DIRECT) 3.4 pg/mL (7.2-24.0); TESTOSTERONE, SERUM 301 ng/dL (264-916)
== END | disposition home or self-care (01) ==
LOC: LAB SHORT 10:15 → LAB 10:15
PROVIDERS: Nurse Practitioner Family
DX: E29.1 Testicular hypofunction (principal); I10 Essential (primary) hypertension
CPT/HCPCS: 80053; 80061; 84402; 84403; 84443; 85025

== ENCOUNTER → 2022-07-19 | Outpatient (CLI) | payer OTHER ==
[2022-07-19 17:21] LABS: BASOPHILS ABSOLUTE AUTO 0.05 K/mm3 (0.00-0.23); BASOPHILS PERCENT AUTO 1 % (0-2); EOSINOPHILS ABSOLUTE AUTO 0.26 K/mm3 (0.00-0.68); EOSINOPHILS PERCENT AUTO 3 % (0-6); Hematocrit 53.6 % (37.0-53.0); Hemoglobin 17.1 g/dL (13.5-17.5); IMMATURE GRAN ABSOLUTE AUTO 0.02 K/mm3 (0.00-0.10); IMMATURE GRAN PERCENT AUTO 0 % (0-1); LYMPHOCYTES ABSOLUTE AUTO 2.01 K/mm3 (0.84-5.20); LYMPHOCYTES PERCENT AUTO 24 % (21-46); MONOCYTES ABSOLUTE AUTO 0.59 K/mm3 (0.16-1.47); MONOCYTES PERCENT AUTO 7 % (4-13); Mean Corpuscular HGB 27.6 pg (26.0-34.0); Mean Corpuscular HGB Conc 31.9 g/dL (31.5-36.5); Mean Corpuscular Volume 87 fL (80-100); Mean Platelet Volume 11.9 fL (9.1-12.4); NEUTROPHILS ABSOLUTE AUTO 5.53 K/mm3 (1.96-9.15); NEUTROPHILS PERCENT AUTO 65 % (41-73); Platelet Count 144 K/mm3 (150-400); RDW Standard Deviation 47.1 fL (35.1-46.3); Red Blood Cell Count 6.19 M/mm3 (4.30-5.90); White Blood Cell Count 8.46 K/mm3 (4.00-11.30)
[2022-07-19 17:36] LABS: Free Thyroxine 0.74 ng/dL (0.70-1.60)
[2022-07-19 17:57] LABS: Thyroid Stimulating Hormone 1.68 uIU/mL (0.360-4.800)
== END | disposition home or self-care (01) ==
LOC: LAB SHORT 12:45
PROVIDERS: Nurse Practitioner Family
DX: G30.9 Alzheimer's disease, unspecified (principal); R41.89 Other symptoms and signs involving cognitive functions and awareness; R41.3 Other amnesia
CPT/HCPCS: 82607; 82746; 84439; 84443; 85025; 85651; 86592

== ENCOUNTER → 2022-11-24 | Outpatient (CLI) | payer OTHER ==
[2022-11-24 16:14] LABS: BASOPHILS ABSOLUTE AUTO 0.06 K/mm3 (0.00-0.23); BASOPHILS PERCENT AUTO 1 % (0-2); EOSINOPHILS ABSOLUTE AUTO 0.43 K/mm3 (0.00-0.68); EOSINOPHILS PERCENT AUTO 5 % (0-6); Hematocrit 48.5 % (37.0-53.0); Hemoglobin 16.7 g/dL (13.5-17.5); IMMATURE GRAN ABSOLUTE AUTO 0.02 K/mm3 (0.00-0.10); IMMATURE GRAN PERCENT AUTO 0 % (0-1); LYMPHOCYTES ABSOLUTE AUTO 1.91 K/mm3 (0.84-5.20); LYMPHOCYTES PERCENT AUTO 21 % (21-46); MONOCYTES ABSOLUTE AUTO 0.58 K/mm3 (0.16-1.47); MONOCYTES PERCENT AUTO 7 % (4-13); Mean Corpuscular HGB 29.7 pg (26.0-34.0); Mean Corpuscular HGB Conc 34.4 g/dL (31.5-36.5); Mean Corpuscular Volume 86 fL (80-100); Mean Platelet Volume 10.5 fL (9.1-12.4); NEUTROPHILS ABSOLUTE AUTO 5.96 K/mm3 (1.96-9.15); NEUTROPHILS PERCENT AUTO 67 % (41-73); Platelet Count 151 K/mm3 (150-400); RDW Coefficient Variation 13.8 % (11.7-14.2); Red Blood Cell Count 5.63 M/mm3 (4.30-5.90); White Blood Cell Count 8.96 K/mm3 (4.00-11.30)
[2022-11-24 16:24] LABS: Albumin, Blood 3.7 g/dL (3.4-5.0); Albumin/Globulin Ratio 1.1 (0.8-1.8); Bilirubin, Total 0.5 mg/dL (0.1-1.0); Bun/Creatinine Ratio 9.5 (12.0-20.0); Calcium, Blood 9.1 mg/dL (8.5-10.1); Creatinine, Blood 0.84 mg/dL (0.60-1.20); Globulin, Blood 3.4 g/dL (2.2-4.0); Potassium, Blood 4.2 mmol/L (3.5-5.5); Total Protein, Blood 7.1 g/dL (6.4-8.2)
== END | disposition home or self-care (01) ==
LOC: LAB SHORT 16:09
PROVIDERS: Physician Assistant
DX: R10.9 Unspecified abdominal pain (principal)
CPT/HCPCS: 80053; 83690; 85025

== ENCOUNTER → 2023-03-18 | Outpatient (CLI) | payer OTHER ==
[2023-03-18 18:10] LABS: BASOPHILS ABSOLUTE AUTO 0.03 K/mm3 (0.00-0.23); BASOPHILS PERCENT AUTO 0 % (0-2); EOSINOPHILS ABSOLUTE AUTO 0.35 K/mm3 (0.00-0.68); EOSINOPHILS PERCENT AUTO 4 % (0-6); Hemoglobin 18.7 g/dL (13.5-17.5); IMMATURE GRAN ABSOLUTE AUTO 0.02 K/mm3 (0.00-0.10); IMMATURE GRAN PERCENT AUTO 0 % (0-1); LYMPHOCYTES ABSOLUTE AUTO 1.96 K/mm3 (0.84-5.20); LYMPHOCYTES PERCENT AUTO 24 % (21-46); MONOCYTES ABSOLUTE AUTO 0.55 K/mm3 (0.16-1.47); MONOCYTES PERCENT AUTO 7 % (4-13); Mean Corpuscular HGB Conc 33.4 g/dL (31.5-36.5); Mean Corpuscular Volume 90 fL (80-100); Mean Platelet Volume 11.8 fL (9.1-12.4); NEUTROPHILS ABSOLUTE AUTO 5.13 K/mm3 (1.96-9.15); NEUTROPHILS PERCENT AUTO 64 % (41-73); Platelet Count 145 K/mm3 (150-400); RDW Coefficient Variation 13.5 % (11.7-14.2); Red Blood Cell Count 6.24 M/mm3 (4.30-5.90); White Blood Cell Count 8.04 K/mm3 (4.00-11.30)
[2023-03-18 21:11] LABS: C-REACTIVE PROTEIN, EXT RANGE 0.358 mg/dL (0.000-0.300)
[2023-03-18 21:16] LABS: Albumin/Globulin Ratio 1.1 (0.8-1.8); Bilirubin, Total 0.5 mg/dL (0.1-1.0); Bun/Creatinine Ratio 12.7 (12.0-20.0); Calcium, Blood 9.6 mg/dL (8.5-10.1); Creatinine, Blood 0.87 mg/dL (0.60-1.20); Globulin, Blood 3.5 g/dL (2.2-4.0); Potassium, Blood 4.2 mmol/L (3.5-5.5); Total Protein, Blood 7.5 g/dL (6.4-8.2)
[2023-03-20 16:10] LABS: FREE TESTOSTERONE(DIRECT) 15.7 pg/mL (7.2-24.0); TESTOSTERONE, SERUM 1158 ng/dL (264-916)
== END | disposition home or self-care (01) ==
LOC: LAB 17:23 → LAB SHORT 17:23
PROVIDERS: Nurse Practitioner Family
DX: M25.50 Pain in unspecified joint (principal); E29.1 Testicular hypofunction
CPT/HCPCS: 80053; 84402; 84403; 85025; 85651; 86038; 86140; 86430

== ENCOUNTER → 2023-06-12 | Outpatient (CLI) | payer OTHER ==
[2023-06-12 18:32] LABS: BASOPHILS ABSOLUTE AUTO 0.05 K/mm3 (0.00-0.23); BASOPHILS PERCENT AUTO 1 % (0-2); EOSINOPHILS ABSOLUTE AUTO 0.32 K/mm3 (0.00-0.68); EOSINOPHILS PERCENT AUTO 4 % (0-6); Hematocrit 52.5 % (37.0-53.0); Hemoglobin 17.5 g/dL (13.5-17.5); IMMATURE GRAN ABSOLUTE AUTO 0.03 K/mm3 (0.00-0.10); IMMATURE GRAN PERCENT AUTO 0 % (0-1); LYMPHOCYTES ABSOLUTE AUTO 1.58 K/mm3 (0.84-5.20); LYMPHOCYTES PERCENT AUTO 18 % (21-46); MONOCYTES ABSOLUTE AUTO 0.54 K/mm3 (0.16-1.47); MONOCYTES PERCENT AUTO 6 % (4-13); Mean Corpuscular HGB 30.3 pg (26.0-34.0); Mean Corpuscular HGB Conc 33.3 g/dL (31.5-36.5); Mean Corpuscular Volume 91 fL (80-100); Mean Platelet Volume 11.1 fL (9.1-12.4); NEUTROPHILS ABSOLUTE AUTO 6.44 K/mm3 (1.96-9.15); NEUTROPHILS PERCENT AUTO 72 % (41-73); Platelet Count 129 K/mm3 (150-400); RDW Coefficient Variation 14.5 % (11.7-14.2); RDW Standard Deviation 47.9 fL (35.1-46.3); Red Blood Cell Count 5.77 M/mm3 (4.30-5.90); White Blood Cell Count 8.96 K/mm3 (4.00-11.30)
[2023-06-12 18:52] LABS: Alanine Aminotransfer (ALT/SGP 53 U/L (12-78); Albumin, Blood 3.9 g/dL (3.4-5.0); Albumin/Globulin Ratio 1.1 (0.8-1.8); Alk Phos 74 U/L (50-136); Anion Gap 4 mmol/L (6-16); Aspartate Aminotrans (AST/SGOT 42 U/L (12-37); Bilirubin, Total 0.4 mg/dL (0.1-1.0); Blood Urea Nitrogen 10 mg/dL (8-24); CHOL/HDL RATIO 3.5; CO2, Blood 26 mmol/L (21-32); Calcium, Blood 9.4 mg/dL (8.5-10.1); Chloride, Blood 106 mmol/L (98-108); Cholesterol 110 mg/dL (50-200); Globulin, Blood 3.6 g/dL (2.2-4.0); Glucose, Blood 86 mg/dL (70-99); HDL Cholesterol 31 mg/dL (>39); LDL/HDL RATIO 1.8; Low Density Lipoprotein Chol 54 mg/dL (0-110); Potassium, Blood 4.3 mmol/L (3.5-5.5); Sodium, Blood 136 mmol/L (136-145); Total Protein, Blood 7.5 g/dL (6.4-8.2); Triglycerides 123 mg/dL (30-160); Very Low Density Lipoprot Chol 24 mg/dL (6-32)
[2023-06-12 19:01] LABS: Bun/Creatinine Ratio 12.9 (12.0-20.0); Creatinine, Blood 0.78 mg/dL (0.60-1.20); Glomerular Filtration Rate 106 (60-); Thyroid Stimulating Hormone 0.824 uIU/mL (0.360-4.800)
[2023-06-18 19:10] LABS: FREE TESTOSTERONE(DIRECT) 6.9 pg/mL (7.2-24.0); TESTOSTERONE, SERUM 568 ng/dL (264-916)
== END ==
LOC: LAB SHORT 16:49 → LAB 16:49
PROVIDERS: Nurse Practitioner Family
DX: Z12.5 Encounter for screening for malignant neoplasm of prostate (principal); E29.1 Testicular hypofunction; E55.9 Vitamin D deficiency, unspecified; F33.1 Major depressive disorder, recurrent, moderate; F41.8 Other specified anxiety disorders; I10 Essential (primary) hypertension
CPT/HCPCS: 80053; 80061; 82306; 84402; 84403; 84443; 85025; G0103

== ENCOUNTER → 2024-01-09 | Outpatient (CLI) | payer OTHER ==
[2024-01-09 18:49] LABS: BASOPHILS ABSOLUTE AUTO 0.04 K/mm3 (0.00-0.23); BASOPHILS PERCENT AUTO 1 % (0-2); EOSINOPHILS ABSOLUTE AUTO 0.22 K/mm3 (0.00-0.68); EOSINOPHILS PERCENT AUTO 3 % (0-6); IMMATURE GRAN ABSOLUTE AUTO 0.01 K/mm3 (0.00-0.10); IMMATURE GRAN PERCENT AUTO 0 % (0-1); LYMPHOCYTES ABSOLUTE AUTO 1.62 K/mm3 (0.84-5.20); LYMPHOCYTES PERCENT AUTO 21 % (21-46); MONOCYTES ABSOLUTE AUTO 0.56 K/mm3 (0.16-1.47); MONOCYTES PERCENT AUTO 7 % (4-13); Mean Corpuscular HGB 30.2 pg (26.0-34.0); Mean Corpuscular HGB Conc 33.2 g/dL (31.5-36.5); Mean Corpuscular Volume 91 fL (80-100); Mean Platelet Volume 11.3 fL (9.1-12.4); NEUTROPHILS ABSOLUTE AUTO 5.44 K/mm3 (1.96-9.15); NEUTROPHILS PERCENT AUTO 69 % (41-73); Platelet Count 145 K/mm3 (150-400); RDW Coefficient Variation 14.1 % (11.7-14.2); RDW Standard Deviation 46.9 fL (35.1-46.3); Red Blood Cell Count 6.29 M/mm3 (4.30-5.90); White Blood Cell Count 7.89 K/mm3 (4.00-11.30)
[2024-01-09 18:50] LABS: Hematocrit 57.3 % (37.0-53.0)
[2024-01-09 19:14] LABS: Alanine Aminotransfer (ALT/SGP 55 U/L (12-78); Albumin, Blood 3.7 g/dL (3.4-5.0); Albumin/Globulin Ratio 0.9 (0.8-1.8); Alk Phos 80 U/L (50-136); Anion Gap 10 mmol/L (3-11); Aspartate Aminotrans (AST/SGOT 39 U/L (12-37); Bilirubin, Total 0.5 mg/dL (0.1-1.0); Blood Urea Nitrogen 11 mg/dL (8-24); CHOL/HDL RATIO 5.1; CO2, Blood 25 mmol/L (21-32); Calcium, Blood 9.5 mg/dL (8.5-10.1); Chloride, Blood 105 mmol/L (98-108); Cholesterol 204 mg/dL (50-200); Globulin, Blood 3.9 g/dL (2.2-4.0); Glucose, Blood 62 mg/dL (70-99); HDL Cholesterol 40 mg/dL (>39); LDL/HDL RATIO 2.9; Low Density Lipoprotein Chol 116 mg/dL (0-110); Potassium, Blood 4.1 mmol/L (3.5-5.5); Sodium, Blood 136 mmol/L (136-145); Total Protein, Blood 7.6 g/dL (6.4-8.2); Triglycerides 242 mg/dL (30-160); Very Low Density Lipoprot Chol 48 mg/dL (6-32)
[2024-01-09 19:23] LABS: Bun/Creatinine Ratio 16.1 (12.0-20.0); Creatinine, Blood 0.69 mg/dL (0.60-1.20); Glomerular Filtration Rate 109 (60-)
== END ==
LOC: LAB 17:49 → LAB SHORT 17:49
PROVIDERS: Nurse Practitioner Family
DX: I10 Essential (primary) hypertension (principal); E29.1 Testicular hypofunction; E55.9 Vitamin D deficiency, unspecified; Z12.5 Encounter for screening for malignant neoplasm of prostate
CPT/HCPCS: 80053; 80061; 82306; 84443; 85025; G0103

== ENCOUNTER → 2024-03-02 | Outpatient (CLI) | payer OTHER | END | disposition home or self-care (01) | LOC: LAB SHORT 16:08 → LAB 16:08 | DX: R10.9 Unspecified abdominal pain (principal) | CPT/HCPCS: 87086 ==

== ENCOUNTER → 2024-04-22 | Outpatient (CLI) | payer OTHER ==
[2024-04-22 17:12] LABS: Adenovirus F 40/41 Not Detected (NOT DETECT); Astrovirus Not Detected (NOT DETECT); Campylobacter Sp Not Detected (NOT DETECT); Cryptosporidium Not Detected (NOT DETECT); Cyclospora Cayetanensis Not Detected (NOT DETECT); E. Coli O157 Not Detected (NOT DETECT); Entamoeba Histolytica Not Detected (NOT DETECT); Enteroaggregative E. coli-EAEC Not Detected (NOT DETECT); Enteropathogenic E. coli-EPEC Not Detected (NOT DETECT); Enterotoxigenic E. coli-ETEC Not Detected (NOT DETECT); Giardia Lamblia Not Detected (NOT DETECT); Norovirus GI/GII Not Detected (NOT DETECT); Plesiomonas Shigelloides Not Detected (NOT DETECT); Rotavirus A Not Detected (NOT DETECT); Salmonella Sp Not Detected (NOT DETECT); Sapovirus Not Detected (NOT DETECT); Shiga Toxin-prod E. coli-STEC Not Detected (NOT DETECT); Shigella/Enteroin E. coli-EIEC Not Detected (NOT DETECT); Vibrio Cholerae Not Detected (NOT DETECT); Vibrio Sp Not Detected (NOT DETECT); Yersinia Enterocolitica Not Detected (NOT DETECT)
== END | disposition home or self-care (01) ==
LOC: LAB SHORT 09:30 → LAB 09:30
PROVIDERS: Nurse Practitioner Family
DX: R19.7 Diarrhea, unspecified (principal)
CPT/HCPCS: 87338; 87507

== ENCOUNTER → 2024-05-26 | Outpatient (CLI) | payer OTHER ==
[~2024-05-26] MED LIST changes: +AIMOVIG AU140 MG/1 M SC; +AMLODIPINE BESYL5 MG PO; +ATOR40TA PO; +COMBIVENT RESPIM4 G1 INH; +HUMALOG100 UNIT/1; +HYDROCODONE-AC1 EAC7 PO; +LANTUS SOL100 UNIT/1 SC; +TRULICITY1.5 MG/0.1 SC; +VARENICLINE TART1 M2 PO
[2024-05-26 19:03] LABS: BASOPHILS ABSOLUTE AUTO 0.04 K/mm3 (0.00-0.23); BASOPHILS PERCENT AUTO 0 % (0-2); EOSINOPHILS ABSOLUTE AUTO 0.19 K/mm3 (0.00-0.68); EOSINOPHILS PERCENT AUTO 2 % (0-6); Hematocrit 50.1 % (37.0-53.0); Hemoglobin 16.2 g/dL (13.5-17.5); IMMATURE GRAN ABSOLUTE AUTO 0.03 K/mm3 (0.00-0.10); IMMATURE GRAN PERCENT AUTO 0 % (0-1); LYMPHOCYTES ABSOLUTE AUTO 1.42 K/mm3 (0.84-5.20); LYMPHOCYTES PERCENT AUTO 15 % (21-46); MONOCYTES ABSOLUTE AUTO 0.64 K/mm3 (0.16-1.47); MONOCYTES PERCENT AUTO 7 % (4-13); Mean Corpuscular HGB 29.8 pg (26.0-34.0); Mean Corpuscular HGB Conc 32.3 g/dL (31.5-36.5); Mean Corpuscular Volume 92 fL (80-100); Mean Platelet Volume 11.5 fL (9.1-12.4); NEUTROPHILS ABSOLUTE AUTO 7.32 K/mm3 (1.96-9.15); NEUTROPHILS PERCENT AUTO 76 % (41-73); Platelet Count 206 K/mm3 (150-400); RDW Coefficient Variation 14.2 % (11.7-14.2); RDW Standard Deviation 47.9 fL (35.1-46.3); Red Blood Cell Count 5.44 M/mm3 (4.30-5.90); White Blood Cell Count 9.64 K/mm3 (4.00-11.30)
[2024-05-26 21:09] LABS: Alanine Aminotransfer (ALT/SGP 40 U/L (12-78); Albumin, Blood 3.6 g/dL (3.4-5.0); Albumin/Globulin Ratio 0.9 (0.8-1.8); Alk Phos 92 U/L (50-136); Anion Gap 11 mmol/L (3-11); Aspartate Aminotrans (AST/SGOT 32 U/L (12-37); Bilirubin, Total 0.6 mg/dL (0.1-1.0); Blood Urea Nitrogen 8 mg/dL (8-24); Bun/Creatinine Ratio 10.4 (12.0-20.0); C-REACTIVE PROTEIN, EXT RANGE <0.290 mg/dL (0.000-0.300); CHOL/HDL RATIO 2.9; CO2, Blood 26 mmol/L (21-32); Calcium, Blood 9.6 mg/dL (8.5-10.1); Chloride, Blood 109 mmol/L (98-108); Cholesterol 110 mg/dL (50-200); Creatinine, Blood 0.77 mg/dL (0.60-1.20); Globulin, Blood 3.8 g/dL (2.2-4.0); Glomerular Filtration Rate 106 (60-); Glucose, Blood 61 mg/dL (70-99); HDL Cholesterol 38 mg/dL (>39); LDL/HDL RATIO 1.4; Low Density Lipoprotein Chol 54 mg/dL (0-110); Sodium, Blood 141 mmol/L (136-145); Thyroid Stimulating Hormone 0.838 uIU/mL (0.360-4.800); Total Protein, Blood 7.4 g/dL (6.4-8.2); Triglycerides 91 mg/dL (30-160); Very Low Density Lipoprot Chol 18 mg/dL (6-32)
[2024-05-29 04:56] LABS: ANTI-NUCLEAR AB ANA,IGG ELISA None Detected (None Detected)
== END ==
LOC: LAB 17:50 → LAB SHORT 17:50
PROVIDERS: Nurse Practitioner Family
DX: I10 Essential (primary) hypertension (principal); E78.5 Hyperlipidemia, unspecified; M25.50 Pain in unspecified joint; E55.9 Vitamin D deficiency, unspecified
CPT/HCPCS: 80053; 80061; 82306; 84443; 85025; 85651; 86038; 86140; 86430

== ENCOUNTER 2024-05-28 17:18 | Emergency (ER) | payer OTHER ==
[~2024-05-28] VITALS: Ht 190.5 cm; Wt 119.8 kg
[~2024-05-28 17:18] MED LIST changes: -AIMOVIG AU140 MG/1 M SC; -AMLODIPINE BESYL5 MG PO; -ATOR40TA PO; -COMBIVENT RESPIM4 G1 INH; -HUMALOG100 UNIT/1; -HYDROCODONE-AC1 EAC7 PO; -LANTUS SOL100 UNIT/1 SC; -TRULICITY1.5 MG/0.1 SC; -VARENICLINE TART1 M2 PO
[2024-05-28] MEDS ORDERED: Albuterol 2.5 MG/3 ML VIAL INH SCH (17:25)
[2024-05-28] MEDS ORDERED: LORazepam 2 MG/ML 1ML Injection IV ONE (17:25)
[2024-05-28 17:36] LABS: Base Excess Venous -0.5 mmol/L; Bicarbonate Venous 24.8 mmol/L (24.0-30.0); PCO2 Venous 28.6 mmHg (38-42); pH Blood Venous 7.51 (7.34-7.37)
[2024-05-28 17:38] LABS: BASOPHILS ABSOLUTE AUTO 0.05 K/mm3 (0.00-0.23); BASOPHILS PERCENT AUTO 1 % (0-2); EOSINOPHILS ABSOLUTE AUTO 0.18 K/mm3 (0.00-0.68); EOSINOPHILS PERCENT AUTO 2 % (0-6); Hemoglobin 15.5 g/dL (13.5-17.5); IMMATURE GRAN ABSOLUTE AUTO 0.03 K/mm3 (0.00-0.10); IMMATURE GRAN PERCENT AUTO 0 % (0-1); LYMPHOCYTES PERCENT AUTO 22 % (21-46); MONOCYTES PERCENT AUTO 8 % (4-13); Mean Corpuscular HGB 29.9 pg (26.0-34.0); Mean Corpuscular Volume 91 fL (80-100); Mean Platelet Volume 10.9 fL (9.1-12.4); NEUTROPHILS ABSOLUTE AUTO 6.24 K/mm3 (1.96-9.15); NEUTROPHILS PERCENT AUTO 68 % (41-73); Platelet Count 187 K/mm3 (150-400); RDW Coefficient Variation 13.8 % (11.7-14.2); RDW Standard Deviation 45.6 fL (35.1-46.3); Red Blood Cell Count 5.19 M/mm3 (4.30-5.90)
[2024-05-28 18:07] LABS: Albumin, Blood 3.3 g/dL (3.4-5.0); Albumin/Globulin Ratio 0.9 (0.8-1.8); Bilirubin, Total 0.6 mg/dL (0.1-1.0); Bun/Creatinine Ratio 9.3 (12.0-20.0); Calcium, Blood 8.9 mg/dL (8.5-10.1); Creatinine, Blood 0.75 mg/dL (0.60-1.20); Globulin, Blood 3.5 g/dL (2.2-4.0); Potassium, Blood 4.6 mmol/L (3.5-5.5); Total Protein, Blood 6.8 g/dL (6.4-8.2)
[2024-05-28] MEDS ORDERED: HUMALOG100 UNIT/1 (18:25)
[2024-05-28] MEDS ORDERED: LANTUS SOL100 UNIT/1 SC (18:25)
[2024-05-28] MEDS ORDERED: TRULICITY1.5 MG/0.1 SC (18:26)
[2024-05-28 19:00] VITALS: BP 138/76
[2024-05-28] MEDS ORDERED: ALBU90OI INH (19:05)
[2024-05-28] MEDS ORDERED: PRED20 PO (19:05)
== END 2024-05-28 19:14 | disposition home or self-care (01) ==
LOC: ER 17:18
PROVIDERS: Emergency Medicine
DX: J44.1 Chronic obstructive pulmonary disease with (acute) exacerbation (principal); Z88.8 Allergy status to other drugs, medicaments and biological substances; Z79.899 Other long term (current) drug therapy; Z79.84 Long term (current) use of oral hypoglycemic drugs; Z79.4 Long term (current) use of insulin; Z79.82 Long term (current) use of aspirin; E11.9 Type 2 diabetes mellitus without complications; I10 Essential (primary) hypertension; Z87.891 Personal history of nicotine dependence
CPT/HCPCS: 71045; 80053; 82803; 85025; 93005; 93010; 94644; 94664; 96374; 99285-25; J2060

== ENCOUNTER 2024-06-02 21:46 | Observation (INO) | payer OTHER ==
[~2024-06-02] VITALS: Ht 190.5 cm; Wt 117.9 kg
[~2024-06-02 21:46] MED LIST changes: +HUMALOG100 UNIT/1; +LANTUS SOL100 UNIT/1 SC; +TRULICITY1.5 MG/0.1 SC
[2024-06-02 22:11] LABS: BASOPHILS ABSOLUTE AUTO 0.04 K/mm3 (0.00-0.23); BASOPHILS PERCENT AUTO 1 % (0-2); EOSINOPHILS ABSOLUTE AUTO 0.15 K/mm3 (0.00-0.68); EOSINOPHILS PERCENT AUTO 2 % (0-6); Hematocrit 44.7 % (37.0-53.0); IMMATURE GRAN ABSOLUTE AUTO 0.03 K/mm3 (0.00-0.10); IMMATURE GRAN PERCENT AUTO 0 % (0-1); LYMPHOCYTES ABSOLUTE AUTO 1.75 K/mm3 (0.84-5.20); LYMPHOCYTES PERCENT AUTO 21 % (21-46); MONOCYTES ABSOLUTE AUTO 0.47 K/mm3 (0.16-1.47); MONOCYTES PERCENT AUTO 6 % (4-13); Mean Corpuscular HGB 29.8 pg (26.0-34.0); Mean Corpuscular HGB Conc 33.6 g/dL (31.5-36.5); Mean Corpuscular Volume 89 fL (80-100); Mean Platelet Volume 10.5 fL (9.1-12.4); NEUTROPHILS ABSOLUTE AUTO 5.78 K/mm3 (1.96-9.15); NEUTROPHILS PERCENT AUTO 70 % (41-73); Platelet Count 157 K/mm3 (150-400); RDW Coefficient Variation 13.4 % (11.7-14.2); RDW Standard Deviation 43.8 fL (35.1-46.3); Red Blood Cell Count 5.04 M/mm3 (4.30-5.90); White Blood Cell Count 8.22 K/mm3 (4.00-11.30)
[2024-06-02 22:30] LABS: Albumin, Blood 3.2 g/dL (3.4-5.0); Bilirubin, Total 0.6 mg/dL (0.1-1.0); Bun/Creatinine Ratio 7.3 (12.0-20.0); Calcium, Blood 9.3 mg/dL (8.5-10.1); Creatinine, Blood 0.69 mg/dL (0.60-1.20); Globulin, Blood 3.1 g/dL (2.2-4.0); Potassium, Blood 3.4 mmol/L (3.5-5.5); Total Protein, Blood 6.3 g/dL (6.4-8.2)
[2024-06-03] MEDS ORDERED: Aspirin 325 MG Tab PO ONE (00:25)
[2024-06-03] MEDS ORDERED: Magnesium Hydroxide Conc 10 ML UDC PO PRN (02:00)
[2024-06-03] MEDS ORDERED: FLU VACC TS2024-25(6MOS UP)/PF 45 MCG/0.5 ML SYRINGE IM ONE (02:00)
[2024-06-03] MEDS ORDERED: Bisacodyl 10 MG Supp PR PRN (02:05)
[2024-06-03] MEDS ORDERED: Acetaminophen 325 MG TABLET PO PRN (02:05)
[2024-06-03] MEDS ORDERED: Ipratropium/Albuterol SulF 2.5-0.5MG/3 ML Amp INH PRN (02:10)
[2024-06-03] MEDS ORDERED: Fluticasone 0.05% Nasal Spray PRN (02:15)
[2024-06-03] MEDS ORDERED: Potassium Chloride 20 MEQ TabCR PO ONE (03:00)
[2024-06-03] MEDS ORDERED: Albuterol HFA200 ACT/6.7 GM INH INH PRN (03:25)
[2024-06-03 05:06] LABS: BASOPHILS ABSOLUTE AUTO 0.04 K/mm3 (0.00-0.23); BASOPHILS PERCENT AUTO 1 % (0-2); EOSINOPHILS ABSOLUTE AUTO 0.19 K/mm3 (0.00-0.68); EOSINOPHILS PERCENT AUTO 3 % (0-6); Hematocrit 43.5 % (37.0-53.0); Hemoglobin 14.6 g/dL (13.5-17.5); IMMATURE GRAN ABSOLUTE AUTO 0.01 K/mm3 (0.00-0.10); IMMATURE GRAN PERCENT AUTO 0 % (0-1); LYMPHOCYTES ABSOLUTE AUTO 1.69 K/mm3 (0.84-5.20); LYMPHOCYTES PERCENT AUTO 22 % (21-46); MONOCYTES ABSOLUTE AUTO 0.42 K/mm3 (0.16-1.47); MONOCYTES PERCENT AUTO 6 % (4-13); Mean Corpuscular HGB 29.9 pg (26.0-34.0); Mean Corpuscular HGB Conc 33.6 g/dL (31.5-36.5); Mean Corpuscular Volume 89 fL (80-100); Mean Platelet Volume 10.3 fL (9.1-12.4); NEUTROPHILS ABSOLUTE AUTO 5.31 K/mm3 (1.96-9.15); NEUTROPHILS PERCENT AUTO 69 % (41-73); Platelet Count 155 K/mm3 (150-400); RDW Coefficient Variation 13.4 % (11.7-14.2); RDW Standard Deviation 43.6 fL (35.1-46.3); Red Blood Cell Count 4.88 M/mm3 (4.30-5.90); White Blood Cell Count 7.66 K/mm3 (4.00-11.30)
[2024-06-03 05:41] LABS: Albumin, Blood 2.9 g/dL (3.4-5.0); Anion Gap 8 mmol/L (3-11); Blood Urea Nitrogen 5 mg/dL (8-24); Bun/Creatinine Ratio 7.8 (12.0-20.0); CO2, Blood 29 mmol/L (21-32); Calcium, Blood 8.9 mg/dL (8.5-10.1); Chloride, Blood 108 mmol/L (98-108); Creatinine, Blood 0.64 mg/dL (0.60-1.20); Glomerular Filtration Rate 112 (60-); Glucose, Blood 89 mg/dL (70-99); Phosphorus, Blood 3.8 mg/dL (2.5-4.9); Potassium, Blood 3.9 mmol/L (3.5-5.5); Sodium, Blood 141 mmol/L (136-145)
[2024-06-03] MEDS ORDERED: Omeprazole 20 MG CapCR PO SCH (06:00)
[2024-06-03] MEDS ORDERED: Insulin Human Lispro 100 Units/ML 3ML Syringe SC SCH (07:30)
[2024-06-03] MEDS ORDERED: Losartan Potassium 50 MG Tab PO SCH (09:00)
[2024-06-03] MEDS ORDERED: Docusate Sodium 100 MG Cap PO SCH (09:00)
[2024-06-03] MEDS ORDERED: Atorvastatin 40 MG Tab PO SCH (09:00)
[2024-06-03] MEDS ORDERED: Aspirin 81 MG TabEC PO SCH (09:00)
[2024-06-03] MEDS ORDERED: Enoxaparin 40 MG/0.4 ML SYR SC SCH (09:00)
[2024-06-03] MEDS ORDERED: Insulin Glargine-Yfgn 100 Unit/mL 3 ML SYR SC SCH (09:00)
[2024-06-03] MEDS ORDERED: Sennosides 8.6 MG Tab PO SCH (09:00)
[2024-06-03 10:45] VITALS: BP 160/97
[2024-06-03] MEDS ORDERED: Mag Sulfate 1 GM/D5% 100ML 100 ML IV STA (10:56)
[2024-06-03] MEDS ORDERED: COMBIVENT RESPIM4 G1 INH (13:28)
[2024-06-03] MEDS ORDERED: AIMOVIG AU140 MG/1 M SC (13:30)
[2024-06-03] MEDS ORDERED: HYDROCODONE-AC1 EAC7 PO (13:31)
[2024-06-03] MEDS ORDERED: VARENICLINE TART1 M2 PO (13:32)
[2024-06-03] MEDS ORDERED: ATOR40TA PO (13:33)
[2024-06-03] MEDS ORDERED: ACYCLOVIR400 MG PO (13:33)
[2024-06-03] MEDS ORDERED: AMLODIPINE BESYL5 MG PO (13:35)
== END 2024-06-03 13:07 | disposition other institution (70) ==
LOC: ER 21:46 → ERHOLD 21:47
PROVIDERS: Emergency Medicine; Family Medicine; ADMIT Student in an Organized Health Care Education/Training Program
DX: R07.89 Other chest pain (principal); J18.9 Pneumonia, unspecified organism; I25.10 Atherosclerotic heart disease of native coronary artery without angina pectoris; I25.2 Old myocardial infarction; I10 Essential (primary) hypertension; E11.9 Type 2 diabetes mellitus without complications; J45.909 Unspecified asthma, uncomplicated; Z95.5 Presence of coronary angioplasty implant and graft; Z87.891 Personal history of nicotine dependence; Z88.8 Allergy status to other drugs, medicaments and biological substances; Z79.84 Long term (current) use of oral hypoglycemic drugs; Z79.82 Long term (current) use of aspirin; Z79.899 Other long term (current) drug therapy
CPT/HCPCS: 71045; 78452; 80053; 80069; 82947; 83036; 83735; 84484; 85025; 93005; 93010; 93017; 94640; 94664; 99285-25; A9270; A9500; G0378; J1815; J3475

== ENCOUNTER 2024-07-03 11:47 | Emergency (ER) | payer OTHER ==
[~2024-07-03] VITALS: Ht 190.5 cm; Wt 119.8 kg
[~2024-07-03 11:47] MED LIST changes: +AIMOVIG AU140 MG/1 M SC; +AMLODIPINE BESYL5 MG PO; +ATOR40TA PO; +COMBIVENT RESPIM4 G1 INH; +HYDROCODONE-AC1 EAC7 PO; +VARENICLINE TART1 M2 PO
[2024-07-03 12:35] VITALS: BP 198/93
[2024-07-03] MEDS ORDERED: Ketorolac Tromethamine 10 MG Tab PO ONE (12:40)
[2024-07-03] MEDS ORDERED: OxyCODONE 5 mg/Acetamin 325 mg TABLET PO ONE (13:30)
[2024-07-03] MEDS ORDERED: Percocet 5-3251 EACH PO (13:50)
[2024-07-03] MEDS ORDERED: FentaNYL Citrate 50 MCG/ML 2 ML Injection IM ONE (14:05)
== END 2024-07-03 14:20 | disposition home or self-care (01) ==
LOC: ER 11:47
DX: S52.514A Nondisplaced fracture of right radial styloid process, initial encounter for closed fracture (principal); W01.10XA Fall on same level from slipping, tripping and stumbling with subsequent striking against unspecified object, initial encounter; J45.909 Unspecified asthma, uncomplicated; Z87.891 Personal history of nicotine dependence
CPT/HCPCS: 29125; 73090; 73130; 96372-59; 99283-25; A9270; J3010

== ENCOUNTER 2024-08-12 07:16 | Day surgery (SDC) | payer OTHER ==
[~2024-08-12] VITALS: Ht 190.5 cm; Wt 117.6 kg
[~2024-08-12 07:16] MED LIST changes: +ASPI81CH PO; +B-12 COMPL1000 MCG/2 IM; +DEPO-TESTO200 MG/18 IM; +FLUT.05NI; +IBUP800 PO; +Lactated Ringer's 1,000 ML IV SCH; +UBRELVY100 MG PO
--- NOTE | 2024-08-12 08:53 | NUR ---
PT PROCEDURE CANCELLED DUE TO NOT HAVE CARDIAC CLEARANCE. PT REPORTS THAT HIS DOCTOR SAID HE WAS CLEARED TO DO A COLONOSCOPY BUT THAT HE COULD NOT GET INTO HIS CARDIOLOGY IN [place] BEFORE SEPTEMBER. LOUIS Ronquillo RN SPOKE WITH DR. CARRASCO TO SEE IF HE COULD LOOK AT PATIENT ECHO AND OKAY THIS PATIENT FOR THE PROCEDURE WHICH COULD NOT BUT STATED IF DR. LAN HAD A QUESTIONS HE WOULD TALK TO HIM PER LOUIS. DR. LAN INFORMATED PT THAT HE COULD NOT DO THIS PROCEDURE WITHOUT ACTUAL CARDIAC CLEARANCE. PT WAS FRUSTRATED AND WALK OUT OF DEPARTMENT, THIS RN WALKED PT TO THE MAIN SURGERY DOOR.
== END 2024-08-12 23:47 | disposition home or self-care (01) ==
LOC: ORSCMMR 07:16 → ORD 08:00 → ORSCMMR 08:00
DX: R10.13 Epigastric pain (principal); R19.7 Diarrhea, unspecified; Z53.9 Procedure and treatment not carried out, unspecified reason
CPT/HCPCS: J7120

== ENCOUNTER → 2024-12-07 | Outpatient (CLI) | payer OTHER ==
[~2024-12-07] MED LIST changes: -Lactated Ringer's 1,000 ML IV SCH
[2024-12-07 17:31] LABS: BASOPHILS ABSOLUTE AUTO 0.05 K/mm3 (0.00-0.23); BASOPHILS PERCENT AUTO 1 % (0-2); EOSINOPHILS ABSOLUTE AUTO 0.17 K/mm3 (0.00-0.68); EOSINOPHILS PERCENT AUTO 2 % (0-6); Hematocrit 49.3 % (37.0-53.0); Hemoglobin 16.2 g/dL (13.5-17.5); IMMATURE GRAN ABSOLUTE AUTO 0.03 K/mm3 (0.00-0.10); IMMATURE GRAN PERCENT AUTO 0 % (0-1); LYMPHOCYTES ABSOLUTE AUTO 1.55 K/mm3 (0.84-5.20); LYMPHOCYTES PERCENT AUTO 18 % (21-46); MONOCYTES PERCENT AUTO 6 % (4-13); Mean Corpuscular HGB 27.7 pg (26.0-34.0); Mean Corpuscular HGB Conc 32.9 g/dL (31.5-36.5); Mean Corpuscular Volume 84 fL (80-100); Mean Platelet Volume 11.1 fL (9.1-12.4); NEUTROPHILS ABSOLUTE AUTO 6.53 K/mm3 (1.96-9.15); NEUTROPHILS PERCENT AUTO 74 % (41-73); Platelet Count 186 K/mm3 (150-400); RDW Coefficient Variation 17.5 % (11.7-14.2); RDW Standard Deviation 51.9 fL (35.1-46.3); Red Blood Cell Count 5.84 M/mm3 (4.30-5.90); White Blood Cell Count 8.83 K/mm3 (4.00-11.30)
[2024-12-12 05:45] LABS: TESTOSTERONE, TOTAL MASS SPEC 711.3 ng/dL (300.0-890.0)
== END ==
LOC: LAB 16:56 → LAB SHORT 16:56
PROVIDERS: Nurse Practitioner Family
DX: R00.2 Palpitations (principal); E29.1 Testicular hypofunction
CPT/HCPCS: 83735; 84402; 84403; 85025

== ENCOUNTER → 2025-04-05 | Outpatient (CLI) | payer OTHER | LOC: LAB 08:43 → LAB SHORT 08:43 | DX: D49.2 Neoplasm of unspecified behavior of bone, soft tissue, and skin (principal); S92.352K Displaced fracture of fifth metatarsal bone, left foot, subsequent encounter for fracture with nonunion | CPT/HCPCS: 88305; 88311 ==